=== PATIENT | female | born 1965 | race Caucasian/White ===

== ENCOUNTER → 2016-11-18 | Outpatient (CLI) | payer MEDICAID ==
[2016-11-18 12:08] LABS: Basophils # (A) 0.1 k/uL (0-0.2); Basophils % (A) 1 %; CH 31.5; CHCM 34.1; Eosinophils # (A) 0.1 k/uL (0-0.7); Eosinophils % (A) 1 %; HCT 43.4 % (34.0-46.0); HDW 2.56; HGB 14.6 gm/dL (11.4-16.0); Luc # (Auto) 0.14; Luc % (Auto) 2; Lymphocytes # (A) 1.7 k/uL (1.0-4.8); Lymphocytes % (A) 24 %; MCH 31.2 pg (25.0-35.0); MCHC 33.6 g/dL (31.0-37.0); MCV 92.9 fL (80.0-100.0); Mean Platelet Volume 9.5; Monocytes # (A) 0.4 k/uL (0-1.0); Monocytes % (A) 6 %; Neutrophils # (A) 4.6 k/uL (1.3-7.7); Neutrophils % (A) 66 %; RBC 4.68 m/uL (3.80-5.40); RDW 12.5 % (11.5-15.5); WBC 6.9 k/uL (3.8-10.6); WBC (Perox) 7.02
== END | disposition home or self-care (01) ==
LOC: LABPAT 11:23
PROVIDERS: ATTEND Orthopaedic Surgery
DX: Z01.812 Encounter for preprocedural laboratory examination (principal); G56.02 Carpal tunnel syndrome, left upper limb
CPT/HCPCS: 85025

== ENCOUNTER 2016-11-25 10:31 | Day surgery (SDC) | payer MEDICAID ==
[2016-11-23 12:17] VITALS: BMI 34.7
--- NOTE | 2016-11-24 11:25 | HP ---
DATE OF ADMISSION: CHIEF COMPLAINT: Left hand pain and numbness. 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 She notes symptoms have worsened recently. She has tried bracing and anti-inflammatories. She is having a difficult time with gripping and grasping and in addition is having night symptoms. PAST MEDICAL HISTORY: Significant for arthritis. PAST SURGICAL HISTORY: Significant for cholecystectomy, tonsillectomy, in addition to excision of ovarian cyst. CURRENT MEDICATIONS: Ibuprofen. She denies drug allergies. FAMILY HISTORY: Significant for diabetes. SOCIAL HISTORY: Significant for 1/2 pack per day tobacco use. A 16-point review of systems otherwise reviewed and is noncontributory. On examination, the patient is approximately 5 foot 3, 180 pounds of endomorphic habitus. HEENT exam is nonfocal. Neck is supple. On examination of her left wrist, she has symmetric range of motion compared to the right. She has a positive Tinel's over the carpal canal. Carpal tunnel compression test is positive. Light touch is diminished in the left thumb, index and middle finger. Abductor pollicis brevis strength is 5-/5. EMG report from 08/31/2016 left upper extremity shows median motor latency at the carpal canal 4.64, sensory latency of 3.8. IMPRESSION: Symptomatic left carpal tunnel syndrome. RECOMMENDATIONS: I talked to the patient regarding her treatment options at length. She is quite symptomatic despite conservative measures. At this point, she opts to proceed with surgery. We will plan to proceed with left carpal tunnel release and will likely perform that as an outpatient procedure utilizing local anesthetic and IV sedation. The risks and benefits are discussed at length in layman's terms.
[~2016-11-25 10:31] MED LIST: DEXAMETHASONE SOD PHOSPHATE 10 MG/ML 1 ML VIAL IV ONE; HYDROmorphone 1 MG/ML 1 ML SYRINGE IVP PRN; LACTATED RINGERS 1,000 ML IV SCH; MIDAZOLAM 2 MG/2 ML VIAL IV PRN; ONDANSETRON 4 MG/2 ML VIAL IVP ONE; SCOPOLAMINE 1.5MG/72HR PATCH TRANSDERM ONE; ceFAZolin 2 GM in SODIUM CHLORIDE 0.9% 100 ML IVPB ONE
[2016-11-25 10:59] VITALS: RESP 16; TEMP 98.3
[2016-11-25] MEDS ORDERED: LIDOCAINE 1% 20 ML VIAL (10MG/ML) FOR IV START INTRADERMA ONE (11:11)
[2016-11-25] MEDS ORDERED: PROPOFOL 10 MG/ML 20 ML VIAL IV ONE (12:12)
[2016-11-25] MEDS ORDERED: BUPIVACAINE (PF) 0.25% 30 ML VIAL SQ ONE (12:12)
[2016-11-25] MEDS ORDERED: MIDAZOLAM 2 MG/2 ML VIAL ONE (12:12)
[2016-11-25] MEDS ORDERED: LIDOCAINE 1% INJ 10MG/ML (20 ML MDV) ONE (12:12)
[2016-11-25] MEDS ORDERED: fentaNYL (PF) 50 MCG/ML 2 ML AMP ONE (12:12)
--- NOTE | 2016-11-25 12:41 | P.OP ---
Date of Procedure: 11/25/16 Preoperative Diagnosis: Left carpal tunnel syndrome Postoperative Diagnosis: Same Procedure(s) Performed: Left carpal tunnel release Anesthesia: MAC, local Surgeon: Kenneth Mo Estimated Blood Loss (ml): 1 Pathology: none sent Condition: stable Disposition: PACU Indications for Procedure: The patient's a 51-year-old female who presents with progressive left hand pain and numbness secondary to carpal tunnel syndrome despite conservative measures. A discussion of the risks and benefits of continued conservative measures versus operative intervention was made with the patient. She opted to proceed with surgery. Operative risks to include infection, neurovascular injury, development of blood clots, possible incomplete resolution of symptoms, possible recurrence and need for subsequent procedures was discussed. Informed consent was obtained. Operative Findings: As below Description of Procedure: The patient was brought to the operating room, and after induction of IV sedation the left upper extremity was prepped and draped in normal fashion. The tourniquet was inflated to 250 mmHg. The proposed incision site was outlined skin marker in line with the radial aspect the fourth ray extending from the volar wrist crease distally 3 cm. One quarter percent plain Marcaine was injected into the proposed incision site. 10 mL was utilized. The skin was incised sharply. Subcutaneous tissues were divided sharply. Electrocautery was used for hemostasis. The superficial palmar fascia was split in line with the skin incision The transverse carpal ligament was transected under direct visualization distally to level the palmar fat pad. I felt there was adequate distal release. Proximally was taken to the level of the volar distal wrist crease. A plane above and below the transverse carpal ligament was then developed bluntly with tenotomies. The confluence of the distal forearm fascia and the transverse carpal ligament was then transected under direct visualization with tenotomy tines pointed in the ulnar direction. I felt there was adequate proximal release. Neural lysis was not performed. The wound was irrigated with normal saline. The skin was reapproximated with simple 4-0 nylon sutures. A sterile dressing was applied. The tourniquet was deflated with less than 15 minutes total tourniquet time. The patient was awoken from sedation and transferred to recovery room in good condition. Blood loss was estimated 1 mL. No complications were incurred. Sponge and needle counts were correct at the end the case.
[2016-11-25 12:59] VITALS: BP 101/69; PULSE 64
--- NOTE | 2016-11-25 14:44 | FL ---
EXAMINATION TYPE: FL guided pain mgmt statistic DATE OF EXAM: 11/25/2016 2:41 PM HISTORY: Pain Pain stimulator insertion. 33 sec fluoro time. [address] Arndt
== END 2016-11-25 13:27 | disposition home or self-care (01) ==
LOC: OR 10:31
PROVIDERS: ATTEND Orthopaedic Surgery
DX: G56.02 Carpal tunnel syndrome, left upper limb (principal); M19.90 Unspecified osteoarthritis, unspecified site; Z79.1 Long term (current) use of non-steroidal anti-inflammatories (NSAID); Z72.0 Tobacco use
CPT/HCPCS: 64721; J2250; J1100; J0690; J2405; J2001; J3010; J2704; 99152; 99153

== ENCOUNTER → 2019-09-16 | Outpatient (CLI) | payer MEDICAID ==
--- NOTE | 2019-09-16 13:20 | MM ---
Reason for exam: screening (asymptomatic). Last mammogram was performed 5 years and 4 months ago. History: Took hormonal contraceptives for 1 year beginning at age 24. Physical Findings: A clinical breast exam by your physician is recommended on an annual basis and results should be correlated with mammographic findings. MG 3D Screening Mammo W/Cad Bilateral CC and MLO view(s) were taken. Prior study comparison: May 15, 2014, right breast MG diagnostic mammo RT w CAD. October 18, 2013, CAD bilateral diagnostic mammogram. The breast tissue is heterogeneously dense. This may lower the sensitivity of mammography. Benign appearing bilateral calcifications. No suspicious abnormality. No significant changes when compared with prior studies. ASSESSMENT: Benign, BI-RAD 2 RECOMMENDATION: Routine screening mammogram of both breasts in 1 year.
== END ==
LOC: RADMAMWWP 10:58
PROVIDERS: ATTEND Family Medicine
DX: Z12.31 Encounter for screening mammogram for malignant neoplasm of breast (principal)
CPT/HCPCS: 77063; 77067

== ENCOUNTER → 2020-09-17 | Outpatient (CLI) | payer MEDICAID ==
--- NOTE | 2020-09-21 09:35 | MM ---
Reason for exam: screening (asymptomatic). Last mammogram was performed 1 year ago. History: Family history of breast cancer in sister at age 45. Took hormonal contraceptives for 1 year beginning at age 24. Physical Findings: A clinical breast exam by your physician is recommended on an annual basis and results should be correlated with mammographic findings. MG 3D Screening Mammo W/Cad Bilateral CC and MLO view(s) were taken. Prior study comparison: September 16, 2019, bilateral MG 3d screening mammo w/cad. May 15, 2014, right breast MG diagnostic mammo RT w CAD. Developing asymmetry with spiculation right upper middle MLO view. This finding is changed when compared with previous exams. ASSESSMENT: Incomplete: need additional imaging evaluation, BI-RAD 0 RECOMMENDATION: Special view mammogram of the right breast. If lesion persists on supplemental views, image directed ultrasound is recommended. [facility] will attempt to contact patient to return for supplemental views and ultrasound if indicated.
== END | disposition home or self-care (01) ==
LOC: RADMAMWWP 11:03
PROVIDERS: ATTEND Family Medicine
DX: Z12.31 Encounter for screening mammogram for malignant neoplasm of breast (principal)
CPT/HCPCS: 77063; 77067

== ENCOUNTER → 2020-09-29 | Outpatient (CLI) | payer MEDICAID ==
--- NOTE | 2020-09-29 09:25 | MM ---
Reason for exam: additional evaluation requested from abnormal screening. Last mammogram was performed less than 1 month ago. History: Family history of breast cancer in sister at age 45. Took hormonal contraceptives for 1 year beginning at age 24. Physical Findings: Nurse did not find any significant physical abnormalities on exam. MG 3D Work Up W/Cad RT Spot compression CC, spot compression MLO, and LM view(s) were taken of the right breast. Prior study comparison: September 17, 2020, bilateral MG 3d screening mammo w/cad. September 16, 2019, bilateral MG 3d screening mammo w/cad. There are scattered fibroglandular densities. Asymmetries right upper outer quadrant disperse on compression. These results were verbally communicated with the patient and result sheet given to the patient on 09/29/20. ASSESSMENT: Probably benign, BI-RAD 3 RECOMMENDATION: Follow-up diagnostic mammogram of the right breast in 6 months.
== END | disposition home or self-care (01) ==
LOC: RADMAMWWP 08:14
PROVIDERS: ATTEND Family Medicine
DX: R92.8 Other abnormal and inconclusive findings on diagnostic imaging of breast (principal)
CPT/HCPCS: 77061; 77065

== ENCOUNTER → 2021-04-23 | Outpatient (CLI) | payer MEDICAID ==
--- NOTE | 2021-04-29 09:42 | MM ---
Reason for exam: follow-up at short interval from prior study. Last mammogram was performed 7 months ago. History: Family history of breast cancer in sister at age 45. Took hormonal contraceptives for 1 year beginning at age 24. Physical Findings: Nurse did not find any significant physical abnormalities on exam. MG 3D Diag Mammo W/Cad RT CC and MLO view(s) were taken of the right breast. Prior study comparison: September 29, 2020, right breast MG 3d work up w/cad RT. September 17, 2020, bilateral MG 3d screening mammo w/cad. September 16, 2019, bilateral MG 3d screening mammo w/cad. May 15, 2014, right breast MG diagnostic mammo RT w CAD. There are scattered fibroglandular densities. There is an asymmetry in the right upper outer quadrant at middle depth that isn't significantly changed since September 2019 and diagnostic mammogram is recommended in September 2021 at which 24 month stability will be obtained. These results were verbally communicated with the patient and result sheet given to the patient on 04/23/21. ASSESSMENT: Probably benign, BI-RAD 3 RECOMMENDATION: Follow-up diagnostic mammogram of both breasts in 5 months.
== END | disposition home or self-care (01) ==
LOC: RADMAMWWP 15:02
PROVIDERS: ATTEND Family Medicine
DX: R92.8 Other abnormal and inconclusive findings on diagnostic imaging of breast (principal)
CPT/HCPCS: 77061; 77065

== ENCOUNTER → 2023-11-15 | Outpatient (CLI) | payer MEDICAID ==
--- NOTE | 2023-11-18 15:44 | MR ---
EXAMINATION TYPE: MR pelvis wo con DATE OF EXAM: 11/15/2023 7:56 PM CLINICAL INDICATION:Female, 58 years old with history of M5450, [id number]; PHH, Low back pain that radiat es down both legs, sacroiliitis. COMPARISON: 09/21/2023 TECHNIQUE: Triplane multisequence imaging was performed of the pelvis. IV Contrast: None FINDINGS: Reproductive: Vagina: Unremarkable. Uterus: Not visualized may be surgically absent. Ovaries: Follicular changes are noted to the ovaries. Bladder: Unremarkable. Bowel: Unremarkable as visualized. Peritoneum: No free fluid or adenopathy. Lymph nodes: No evidence of adenopathy. Vasculature: Unremarkable. Musculoskeletal: Bone marrow signal is within normal signal intensity. Sacroiliac joints. Mild osteop hyte formation. No evidence for acute bony edema Abdominal wall/soft tissues: Unremarkable. IMPRESSION: No evidence for acute process. Sacroiliac joint is without evidence for acute inflammation. There may be mild degeneration.
--- NOTE | 2023-11-18 16:10 | MR ---
EXAMINATION TYPE: MR lumbar spine wo con DATE OF EXAM: 11/15/2023 8:17 PM CLINICAL INDICATION:Female, 58 years old with history of M5450; Low back pain that radiates down both legs, sacroiliitis. COMPARISON: None TECHNIQUE: Multi planar, multi sequence imaging was performed utilizing: T1-weighted, T2-weighted, a nd turbo inversion recovery imaging of the lumbar spine. IV Contrast: . (None if empty) FINDINGS: Alignment: The lumbar vertebral bodies have preserved heights and alignment. Cord: The conus medullaris and the distal spinal cord appear unremarkable with regards to their signa l intensity and morphology. Bones/Discs: Mild degeneration changes throughout the spine with osteophyte formation , Schmorl's nod es and facet joint arthropathy. Multilevel disc desiccation is present. T12-L1: The central disc protrusion without significant spinal canal stenosis. Series 601 image 29. M ild bilateral neural foraminal stenosis secondary to facet joint arthropathy. L1-L2: No evidence of significant spinal canal stenosis. Facet joint arthropathy mild bilateral neura l foraminal stenosis. L2-L3: No evidence of significant spinal canal stenosis. Facet joint arthropathy mild bilateral neura l foraminal stenosis. L3-L4: Disc bulge and facet joint arthropathy result in mild spinal canal and moderate bilateral neur al foraminal stenosis. L4-L5: Disc bulge and facet joint arthropathy result in mild spinal canal and moderate bilateral neur al foraminal stenosis. L5-S1: The disc is rounded posterior morphology without significant spinal canal stenosis. Facet join t arthropathy with mild bilateral neural foraminal stenosis. No significant spinal canal or neural foraminal stenosis in the remainder of the visualized levels. Other findings: None. IMPRESSION: 1. No definitive evidence of significant spinal canal stenosis. 2. 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 3. T12-L1 left central disc protrusion without significant spinal canal stenosis.
== END | disposition home or self-care (01) ==
LOC: RADMRIMAIN 18:51
PROVIDERS: ATTEND Orthopaedic Surgery
DX: M47.26 Other spondylosis with radiculopathy, lumbar region (principal); M51.15 Intervertebral disc disorders with radiculopathy, thoracolumbar region; M46.1 Sacroiliitis, not elsewhere classified; M13.88 Other specified arthritis, other site
CPT/HCPCS: 72148; 72195

== ENCOUNTER → 2025-03-24 | Outpatient (CLI) | payer MEDICAID ==
--- NOTE | 2025-03-24 22:44 | XR ---
EXAMINATION TYPE: XR shoulder complete LT DATE OF EXAM: 03/24/2025 4:21 PM COMPARISON: None. CLINICAL INDICATION: Female, 59 years old with history of M25.512, Pain TECHNIQUE: XR shoulder complete LT view(s) obtained. FINDINGS: The humeral head articulates with the glenoid. The acromio-clavicular junction is normal. No acute fractures or dislocations are evident. A follow up study can be performed 7-10 days from acute trauma for continued pain. MRI can be perfor med if soft tissue evaluation would be of benefit. IMPRESSION: 1. No acute osseous shoulder abnormality. [facility], , 03/24/2025 10:41 PM
--- NOTE | 2025-03-24 22:45 | XR ---
EXAMINATION TYPE: XR knee complete bilateral DATE OF EXAM: 03/24/2025 4:21 PM COMPARISON: None. CLINICAL INDICATION: Female, 59 years old with history of M25.561 M25.562, pain TECHNIQUE: 3 view(s) obtained bilateral knees. FINDINGS: No acute fracture or dislocation evident. Joint spaces are preserved. No joint effusions are evident. Follow up exams can be performed 7-10 days from acute trauma for continued pain. MRI can be performed if evaluation of soft tissues would be of benefit. IMPRESSION: 1. No acute osseous abnormality radiographically apparent bilateral knees [facility], , 03/24/2025 10:43 PM
== END | disposition home or self-care (01) ==
LOC: RADXRMAIN 15:57
PROVIDERS: ATTEND Family Medicine
DX: M25.561 Pain in right knee (principal); M25.512 Pain in left shoulder

== ENCOUNTER → 2025-03-25 | Outpatient (CLI) | payer MEDICAID ==
[2025-03-25 10:17] LABS: HGB 14.5 g/dL (12.0-15.0); MCH 30.3 pg (27.0-32.0); MCHC 33.7 g/dL (32.0-37.0); Mean Platelet Volume 12.8 FL (9.5-12.2); NRBC Per 100 WBC 0 X 10*3/uL (0.00-0.01); Platelet Count 211 X 10*3/uL (140-440); RBC 4.78 X 10*6/uL (4.10-5.20); RDW 12.5 % (11.5-14.5); WBC 6.78 X 10*3/uL (4.50-10.00)
[2025-03-25 10:18] LABS: Basophils # (A) 0.05 X 10*3/uL (0.00-0.10); Basophils % (A) 0.7 %; Eosinophils # (A) 0.11 X 10*3/uL (0.04-0.35); Eosinophils % (A) 1.6 %; Lymphocytes # (A) 1.61 X 10*3/uL (0.90-5.00); Lymphocytes % (A) 23.7 %; Monocytes # (A) 0.65 X 10*3/uL (0.20-1.00); Monocytes % (A) 9.6 %; Neutrophils # (A) 4.33 X 10*3/uL (1.80-7.70)
[2025-03-25 15:21] LABS: ALT 55 U/L (8-44); AST 32 U/L (13-35); Albumin 4.3 g/dL (3.8-4.9); Albumin/Globulin Ratio 1.72 Ratio (1.60-3.17); Alkaline Phosphatase 58 U/L (41-126); Blood Urea Nitrogen 21.6 mg/dL (9.0-27.0); Calcium 9.5 mg/dL (8.7-10.3); Carbon Dioxide 23.3 mmol/L (21.6-31.8); Chloride 106 mmol/L (96-109); Globulin 2.5 g/dL (1.6-3.3); Glucose 122 mg/dL (70-110); LDL Cholesterol,Calculated 93.3 mg/dL (0.0-131.0); Potassium 4.4 mmol/L (3.5-5.5); Rheumatoid Factor, Qnt <15 IU/mL (0-15); Sodium 140 mmol/L (135-145); Total Bilirubin 0.4 mg/dL (0.3-1.2); Total Protein 6.8 g/dL (6.2-8.2); VLDL Calculation 18.02 mg/dL (5.00-40.00)
[2025-03-25 19:17] LABS: Cyclic Citrull Pep IgG Unit <1.5 U/mL (<=3.9); Cyclic Citrullinated Pep IgG Negative
== END | disposition home or self-care (01) ==
LOC: LABWHC1 07:00
PROVIDERS: ATTEND Nurse Practitioner Family
DX: Z79.899 Other long term (current) drug therapy (principal); Z82.61 Family history of arthritis
CPT/HCPCS: 36415; 80053; 80061; 85025; 86038; 86200; 86431